=== PATIENT | female | born 1940 | race Caucasian/White ===

== ENCOUNTER 2017-10-24 14:07 | Emergency (ER) | payer MEDICARE, OTHER ==
[2017-10-24] MEDS ORDERED: Doxycycline 100 MG Cap PO ONE (14:23)
[2017-10-24] MEDS ORDERED: Lidocaine 1% 30 ML SDV INJECT ONE (14:23)
[2017-10-24] MEDS ORDERED: Bacitracin Oint 1 GM U/D Packet TOP ONE (14:23)
[2017-10-24] MEDS ORDERED: Clindamycin HCl 150 MG Cap PO ONE (14:23)
[2017-10-24] MEDS ORDERED: Diphtheria,Pertussis(Acell),Tetanus Vaccine 0.5 ML SDV IM ONE (14:28)
--- NOTE | 2017-10-24 15:12 | EDM.PDOC ---
Scribed by Mildred Shrestha 10/24/17 1511 for Leonardo Florence MD ED HPI GENERAL MEDICAL PROBLEM - General Chief Complaint: Bite:Animal, Insect Stated Complaint: LEFT HAND, DOGS FIGHTING Time Seen by Provider: 10/24/17 14:20 Source of Information: Reports: Patient, RN, RN Notes Reviewed History Limitations: Reports: No Limitations - History of Present Illness INITIAL COMMENTS - FREE TEXT/NARRATIVE: Arrives from home by POV with c/o lacerations x2 to back of left hand sustained within the last hour when bit by her dog. Pt states her 2 dogs were fighting and she tried to separate them. She states the dogs are vaccinated and current. Pt's last tetanus >10yrs ago. Onset: Today Location: Reports: Upper Extremity, Left Quality: Reports: Ache Severity: Mild Improves with: Reports: None Worsens with: Reports: None Associated Symptoms: Reports: No Other Symptoms - Related Data Allergies Allergy/AdvReac Type Severity Reaction Status Date / Time duloxetine [From Cymbalta] Allergy Hives Verified 10/24/17 14:10 meperidine [From Demerol] Allergy Anxiety Verified 10/24/17 14:10 methenamine Allergy Other Verified 10/24/17 14:10 Penicillins Allergy Hives Verified 10/24/17 14:10 simvastatin [From Zocor] Allergy Muscle Verified 10/24/17 14:10 Aches Sulfa (Sulfonamide Allergy Hives Verified 10/24/17 14:10 Antibiotics) Home Meds: Home Meds . [Unable to Verify Home Med List] 10/24/17 [History] Social & Family History - Family History Family Medical History: Noncontributory - Living Situation & Occupation Living situation: Reports: with Family Occupation: Retired ED ROS GENERAL - Review of Systems Review Of Systems: ROS reveals no pertinent complaints other than HPI. ED EXAM, ANIMAL BITE - Physical Exam Exam: See Below Exam Limited By: No Limitations General Appearance: Alert, WD/WN, No Apparent Distress Head: Atraumatic, Normocephalic Respiratory/Chest: No Respiratory Distress Peripheral Pulses: 3+: Radial (L), Radial (R) Extremities: Normal Range of Motion, Normal Capillary Refill, Other (dorsum of left hand with 2cm linear lac, and 3.5cm linear lac. both to depth of subcut. tissue, no active bleeding, no FB) Neurological: Alert, Oriented, No Motor/Sensory Deficits Psychiatric: Normal Mood ED ANIMAL BITE PROCEDURES - Laceration/Wound Repair Left Dorsal Hand Lac/Wound Length In cm: 7.5 (2 lacs, 2cm and 3.5cm) Appearance: Subcutaneous, Linear, Clean Distal NVT: Neuro & Vascular Intact, No Tendon Injury Anesthetic Type: Local Local Anesthesia - Lidocaine (Xylocaine): 1% Plain Local Anesthetic Volume: Other (10cc) Skin Prep: Chlorhexidine (Hibiciens), Saline, Sterile Drape Saline Irrigation (cc's): 1,000 Exploration/Debridement/Repair: Wound Explored, In a Bloodless Field, Explored to Base, Minimal Debridement, Minimally Undermined Closed With: Sutures Suture Size: 4-0 # of Sutures: 11 Suture Type: Nylon, Interrupted Drain Placement: No Sterile Dressing Applied: Nurse Tetanus Status Addressed: Yes Complications: No Course - Vital Signs Last Recorded V/S: Last Vital Signs Temp 36.7 C 10/24/17 14:11 Pulse 76 10/24/17 14:11 Resp 16 10/24/17 14:11 BP 126/69 10/24/17 14:11 Pulse Ox 98 10/24/17 14:11 - Orders/Labs/Meds Orders: Active Orders 24 hr Category Date Time Status Vaccines to be Administered [RC] PER UNIT ROUTINE Care 10/24/17 14:28 Active Meds: Medications Discontinued Medications Generic Name Dose Route Start Last Admin Trade Name Freq PRN Reason Stop Dose Admin Bacitracin 1 dose 10/24/17 14:23 10/24/17 14:28 Bacitracin Oint 1 Gm TOP 10/24/17 14:24 1 dose ONETIME ONE Administration Clindamycin HCl 300 mg 10/24/17 14:23 10/24/17 14:28 Cleocin PO 10/24/17 14:24 300 mg ONETIME ONE Administration Diphtheria/Tetanus/Acell Pertussis 0.5 ml 10/24/17 14:28 10/24/17 14:31 Adacel IM 10/24/17 14:29 0.5 ml .ONCE ONE Administration Doxycycline Hyclate 100 mg 10/24/17 14:23 10/24/17 14:28 Vibramycin PO 10/24/17 14:24 100 mg ONETIME ONE Administration Lidocaine HCl 30 ml 10/24/17 14:23 10/24/17 14:28 Xylocaine-Mpf 1% INJECT 10/24/17 14:24 30 ml ONETIME ONE Administration Departure - Departure Time of Disposition: 15:01 Disposition: Home, Self-Care 01 Condition: Good Clinical Impression: Dog bite of left hand Qualifiers: Encounter type: initial encounter Qualified Code(s): S61.452A - Open bite of left hand, initial encounter; W54.0XXA - Bitten by dog, initial encounter Laceration of left hand Qualifiers: Encounter type: initial encounter Foreign body presence: without foreign body Qualified Code(s): S61.412A - Laceration without foreign body of left hand, initial encounter - Discharge Information Instructions: Animal Bite, [id number], Laceration Care, Adult, [id number] Forms: ED Department Discharge Additional Instructions: RX: Doxycycline 100mg. RX: Clindamycin 300mg. RX: Bactroban ointment 2%. Follow up in clinic in 7 to 10 days for suture removal. Return to ER if any signs of wound infection develop. - My Orders Last 24 Hours: My Active Orders 10/24/17 14:28 Vaccines to be Administered [RC] PER UNIT ROUTINE - Assessment/Plan Last 24 Hours: My Active Orders 10/24/17 14:28 Vaccines to be Administered [RC] PER UNIT ROUTINE I have read and agree with the documentation that has been completed regarding this visit. By signing this record, I attest that the documentation was completed in my physical presence and is an accurate record of the encounter.
== END 2017-10-24 15:13 | disposition home or self-care (01) ==
LOC: DL.ED 14:07
DX: S61.452A Open bite of left hand, initial encounter (principal); W54.0XXA Bitten by dog, initial encounter; Z88.0 Allergy status to penicillin; Z88.8 Allergy status to other drugs, medicaments and biological substances; Z88.2 Allergy status to sulfonamides; Z23 Encounter for immunization
CPT/HCPCS: 12002; 90471; 90715; 99283; A9270; 12015